=== PATIENT | female | born 1985 | race Caucasian/White ===

== ENCOUNTER 2020-10-22 08:41 | Emergency (ER) | payer SELFPAY ==
[~2020-10-22] VITALS: Ht 167.6 cm; Wt 81.2 kg
[2020-10-22 08:51] VITALS: BP 160/88
--- NOTE | 2020-10-22 09:47 | PHYS DOC ---
Past History Past Medical History: No Pertinent History Past Surgical History: Alcohol Use: None Adult General Chief Complaint Chief Complaint: RAPID HEART RATE [facility] HPI Patient is a 35-year-old female at 5 weeks gestation who presents to the emergency room complaining of heart palpitations at night. Patient states that she has had this problem for several years but it typically is worse when she is . She has never been on a director of safety for it. She states it typically occurs when she is sleeping. She states that she can feel them a little bit now but they have mostly resolved. She denies any associated symptoms. She denies any kind of chest pain or dizziness. She states that last night she did have some shortness of breath. She denies any other concerns. She has not had any bleeding or abdominal pain with this . Review of Systems Review of Systems Complete ROS is negative unless otherwise documented in [facility] Allergies Allergies Allergies Coded Allergies Type Severity Reaction Last Updated Verified No Known Drug Allergies 10/22/20 No Physical Exam Physical Exam General: Awake, alert, NAD. Well Nourished, well hydrated. Cooperative HEENT: Atraumatic, EOMI, PERRL, airway patent, moist oral mucosa Neck: Supple, trachea midline Respiratory: CTA bilaterally, normal effort, no wheezing/crackles CV: RRR, no murmur, cap refill <2 GI: Soft, nondistended, nontender, no masses MSK: No obvious deformities Skin: Warm, dry, intact Neuro: A&O x3, speech NL, sensory and motor grossly intact, no focal deficits Psych: Normal affect, normal mood, not suicidal or homicidal Current Patient Data Vital Signs Vital Signs Date Time Temp Pulse Resp B/P (MAP) Pulse Ox O2 Delivery O2 Flow Rate FiO2 10/22/20 08:51 98.6 95 18 160/88 (112) 100 Lab Results Laboratory Tests Test 10/22/20 09:29 POC Urine HCG, Qualitative hcg positive (Negative) EKG EKG [] Radiology/Procedures Radiology/Procedures [] Heart Score Risk Factors: Risk Factors: DM, Current or recent (<one month) smoker, HTN, HLP, family history of CAD, obesity. Risk Scores: Risk Factors: DM, Current or recent (<one month) smoker, HTN, HLP, family history of CAD, obesity. Course & Med Decision Making Course & Med Decision Making Pertinent Labs and Imaging studies reviewed. (See chart for details) Patient is a 35-year-old female who presents to the emergency room after having palpitations last night while sleeping. This has been an ongoing issue for her intermittently for several years. Upon arrival to the emergency room patient has a normal heart rate and is in the normal heart rhythm. She does not have any current symptoms. She is hypertensive upon arrival and this was repeated here in the emergency room and patient continues to meet hypertensive criteria for . We will start her on low dose of labetalol until she sees her HAND SCRAPER. I have discussed with her that she should follow-up with a code enforcement supervisor who can put her on a director of safety. I have discussed with her that if her symptoms recur she should come back to the emergency room while she is having symptoms so we are able to tell the current rhythm she is on. UA does show some white blood cells and patient will be placed on Macrobid. Patient's test results and vitals while in the ED were fully reviewed and discussed with the patient. Patient is stable and at this time does not need admission to the hospital. We have discussed strict return precautions and the importance of following up with their Primary Care Physician. Patient stated understanding and was given an opportunity to ask any questions. Patient is in agreement with plan. Dragon Disclaimer Dragon Disclaimer This electronic medical record was generated, in whole or in part, using a voice recognition dictation system. Departure Departure: Impression: Primary Impression: Hypertension Additional Impression: Palpitation Disposition: 01 DC HOME SELF CARE/HOMELESS Condition: STABLE Referrals: CHANTE HALEY (PCP) AGUSTO LANTIGUA MD Patient Instructions: Hypertension During Scripts Nitrofurantoin Monohyd/M-Cryst (MACROBID 100 MG CAPSULE) 100 Mg Capsule 1 CAP PO BID for UTI for 5 Days, #10 CAP 0 Refills Prov: RON BELL MD 10/22/20 Labetalol Hcl (LABETALOL HCL) 100 Mg Tablet 1 TAB PO DAILY for HTN for 14 Days, #14 TAB 0 Refills Prov: RON BELL MD 10/22/20 Problem Qualifiers RON BELL MD Oct 22, 2020 09:47
[2020-10-22 09:55] LABS: COLOR,URINE STRAW
[2020-10-22 09:56] LABS: BACTERIA,URINE FEW /HPF (0-FEW); BILIRUBIN,URINE NEG (NEG); CLARITY,URINE CLEAR; GLUCOSE,URINE NEG (NEG); NITRITE,URINE NEG (NEG); RBC,URINE 0 /HPF (0-2); SQUAMOUS EPITHELIAL CELL,UR MOD /LPF; UROBILINOGEN,URINE 0.2 mg/dL (0.2 mg/dL); WBC,URINE OCC /HPF (0-4)
[2020-10-22] MEDS ORDERED: NITR100C62 PO (10:10)
[2020-10-22] MEDS ORDERED: LABE100T5 PO (10:10)
--- NOTE | 2020-10-22 13:29 | EKG ---
[facility] ED [facility] [address] [place] [id number] Test Date: 2020-10-22 Test Time: 09:01:51 Pat Name: [facility] Department: Room: Gender: F Regional Psychiatric Director: : 1985 Requested By: RON BELL Order Number: [id number] Reading MD: Measurements Intervals [place] Rate: 88 P: 43 [place]: 134 QRS: 26 QRSD: 74 T: 19 QT: 356 QTc: 434 Interpretive Statements SINUS RHYTHM LEFT ATRIAL ABNORMALITY ABNORMAL ECG RI6.02 No previous ECG available for comparison
== END 2020-10-22 10:12 | disposition home or self-care (01) ==
LOC: ER 08:41
DX: O16.1 Unspecified maternal hypertension, first trimester (principal); R00.2 Palpitations; Z3A.01 Less than 8 weeks gestation of pregnancy
CPT/HCPCS: 81001; 81025; 93005; 99284-25